=== PATIENT | female | born 1955 | race Caucasian/White ===

== ENCOUNTER → 2019-11-12 | Outpatient (CLI) | payer OTHER | LOC: RAD 10:12 | PROVIDERS: ATTEND Family Medicine | DX: Z12.31 Encounter for screening mammogram for malignant neoplasm of breast (principal) ==

== ENCOUNTER → 2020-09-07 | Outpatient (CLI) | payer OTHER | LOC: NUC 12:07 | PROVIDERS: ATTEND Family Medicine | DX: M85.88 Other specified disorders of bone density and structure, other site (principal); Z78.0 Asymptomatic menopausal state ==

== ENCOUNTER 2021-03-30 12:05 | Emergency (ER) | payer OTHER ==
[~2021-03-30] VITALS: Ht 165.1 cm; Wt 56.7 kg
[2021-03-30] MEDS ORDERED: DONEPEZIL HCL 55 M1 PO (12:14)
[2021-03-30] MEDS ORDERED: SEROQUEL 100 M100 M1 PO (12:14)
[2021-03-30] MEDS ORDERED: VITAMIN D210 MCG PO (12:15)
[2021-03-30] MEDS ORDERED: REMERON 30 MG T30 M1 PO (12:41)
[2021-03-30] MEDS ORDERED: ALENDRONATE SOD70 MG PO (12:42)
[2021-03-30] MEDS ORDERED: VITAMIN D21250 MCG PO (12:42)
[2021-03-30] MEDS ORDERED: MEMANTINE HCL10 MG PO (12:42)
[2021-03-30] MEDS ORDERED: QUETIAPINE FUMA50 MG PO (12:42)
[2021-03-30 12:44] LABS: URINE BILIRUBIN NEGATIVE (Negative); URINE BLOOD NEGATIVE (Negative); URINE CLARITY CLEAR; URINE COLOR YELLOW; URINE GLUCOSE-RANDOM* NEGATIVE (Negative); URINE KETONES NEGATIVE (Negative); URINE NITRITE-REFLEX NEGATIVE (Negative); URINE PROTEIN (DIPSTICK) NEGATIVE (Negative); URINE SPECIFIC GRAVITY <= 1.005 (1.005-1.035); URINE UROBILINOGEN 0.2 E.U./dl (0.2-1.0)
[2021-03-30 12:48] LABS: HEMATOCRIT 38.1 % (37.0-47.0); HEMOGLOBIN 12.8 gm/dL (12.0-15.0); MCH 32.3 pg (26.0-34.0); MCHC 33.7 g/dL (28.0-37.0); MCV 95.8 fL (80.0-100.0); RBC 3.97 mil/uL (4.20-5.00); RDW 13.1 % (10.5-14.5); WBC 6.4 thou/uL (4.0-11.0)
[2021-03-30 12:56] LABS: AMP/METHAMP Negative (Negative); BARBITURATES Negative (Negative); BENZODIAZEPINES Negative (Negative); COCAINE Negative (Negative); METHADONE Negative (Negative); OPIATES Negative (Negative); PCP Negative (Negative)
[2021-03-30 12:59] LABS: ANION GAP 11 mmol/L (7-16); BUN 9 mg/dL (7-18); CHLORIDE 106 mmol/L (98-107); CO2 26 mmol/L (21-32); CREATININE 0.7 mg/dL (0.6-1.0); GLUCOSE 94 mg/dL (74-106); POTASSIUM 3.6 mmol/L (3.5-5.1); SODIUM 143 mmol/L (136-145)
[2021-03-30] MEDS ORDERED: ARICEPT10 M1 PO (13:02)
[2021-03-30 13:06] LABS: URINE LEUKOCYTES-REFLEX 1+ (Negative)
[2021-03-30 13:06] LABS: LIPASE 124 U/L (73-393); SALICYLATE < 2.8 mg/dL (2.8-20.0); SGOT 16 U/L (15-37); SGPT 23 U/L (14-59); TOTAL BILIRUBIN 0.2 mg/dL (0.2-1.0); TOTAL PROTEIN 7.2 g/dL (6.4-8.2)
[2021-03-30 13:49] LABS: BACTERIA-REFLEX 1-9 Few /HPF (None Seen); CASTS None Seen /LPF (None Seen); CRYSTALS None Seen /LPF (None Seen); SQUAMOUS None Seen /LPF (0-3); URINE RBC 1-2 Rare /HPF (NONE SEEN); URINE WBC-REFLEX 0-5 Rare /HPF (0-5)
[2021-03-30 15:05] VITALS: BP 143/78
--- NOTE | 2021-03-30 15:59 | EKG ---
[place] [address] [facility] [place] [address] ELECTROCARDIOGRAM REPORT Name: MANISH GORDON Room #: [facility]#: [id number] Admission: 03/30/21 Attend Phys: Discharge: Date of : 55 Report #: [id number] [facility] ED Test Date: 2021-03-30 Test Time: 14:59:15 Pat Name: MANISH GORDON Department: Room: Gender: F Video Manager: : 1955 Requested By: Gino Grace Order Number: [id number] MD: Braxton Dahl Measurements Intervals Malone Rate: 69 P: 35 CA: 126 QRS: 2 QRSD: 98 T: 35 QT: 598 QTc: 641 Interpretive Statements Sinus rhythm Borderline low voltage, extremity leads No previous ECG available for comparison Electronically Signed On 03-30-2021 15:59:44 TRANSFORMER BUILDER by Braxton Dahl [email or web address] <ELECTRONICALLY SIGNED> By: Braxton Dahl MD, [facility] 03/30/21 1559 1459 1459 Braxton Dahl MD, FACC /EPI
== END 2021-03-30 17:26 ==
LOC: ER 12:05
PROVIDERS: Emergency Medicine; Student in an Organized Health Care Education/Training Program
DX: R45.1 Restlessness and agitation (principal); Z20.822 Contact with and (suspected) exposure to COVID-19; F03.90 Unspecified dementia, unspecified severity, without behavioral disturbance, psychotic disturbance, mood disturbance, and anxiety; F10.10 Alcohol abuse, uncomplicated; F41.9 Anxiety disorder, unspecified; F32.9 Major depressive disorder, single episode, unspecified; Z79.899 Other long term (current) drug therapy; Y90.0 Blood alcohol level of less than 20 mg/100 ml

== ENCOUNTER 2021-03-30 16:58 | Inpatient (IN) | payer OTHER ==
[~2021-03-30] VITALS: Ht 167.6 cm; Wt 57.2 kg
[~2021-03-30 16:58] MED LIST: ALENDRONATE SOD70 MG PO; ARICEPT10 M1 PO; DONEPEZIL HCL 55 M1 PO; MEMANTINE HCL10 MG PO; QUETIAPINE FUMA50 MG PO; REMERON 30 MG T30 M1 PO; SEROQUEL 100 M100 M1 PO; VITAMIN D210 MCG PO; VITAMIN D21250 MCG PO
[2021-03-30 17:35] VITALS: BP 137/71
[2021-03-30 19:21] VITALS: BP 153/75
[2021-03-31 06:14] LABS: CHOLESTEROL 183 mg/dL (<200); HDL CHOLESTEROL 96 mg/dL (>40); LDL CHOLESTEROL 75 mg/dL (<100); TC:HDL 1.9 Ratio (Not establshd); TRIGLYCERIDE 60 mg/dL (<150); VLDL 12 mg/dL (<40)
[2021-03-31 10:31] VITALS: BP 129/74
[2021-03-31 17:07] LABS: T4 (THYROXINE) 4.7 ug/dL (4.5-12.0)
[2021-03-31 19:46] VITALS: BP 143/75
[2021-04-01 09:20] VITALS: BP 116/68
--- NOTE | 2021-04-01 09:44 | H ---
[facility] [address] [place] [address] HISTORY AND PHYSICAL Name: MANISH GORDON Room #: 523B-B ADM IN M.R.#: [id number] Admission: 03/30/21 Attend Phys: Britton Bennett DO Discharge: Date of : 55 Report #: [id number] THIS REPORT FOR: cc: Bethany Joshua MD, Nora P. MD Kerstein,Britton Olivia DO ~ DATE OF SERVICE: 03/31/2021 INPATIENT PSYCHIATRIC EVALUATION ATTENDING PSYCHIATRIST: Britton Bennett DO BINDER TECHNICIAN: Jabier Tidwell DO REASON FOR ADMISSION: Elopement from her home, suicidal ideations. SOURCES OF INFORMATION: Interview with the patient; telephone conversation with her daughter, Palmira, who is the urologist in [facility]; chart review notes. CHIEF COMPLAINT: Nonspecific. HISTORY OF PRESENT ILLNESS: This is a 65-year-old female, , who resides in [place], [place], with her adult daughter. The patient has a history of Alzheimer's dementia. This may date back as far as 10 years prior. 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 The patient is pleasant on approach today. Denies specific complaints. She was brought to the Emergency Room by her youngest daughter, who I have not met yesterday and the description of the triggering events are as follows: Brought in by her daughter, daughter reports the patient wandered off this morning and was found by a neighbor. The patient has a history of Alzheimer's dementia. Daughter reports increasing agitation and outbursts, irrational behavior. The patient was told by primary care physician to come in and be evaluated. Evidently, there is some report that the patient has alcohol abuse history or alcohol use disorder. Interestingly, there is an allegation that she had 18 beers a day prior to hospital presentation, this was from the youngest daughter that lives with her. The patient became angry with her family this morning and states she "just wanted to get out of the house, so she wandered off." Her daughter states the patient was walking around the neighborhood for approximately 20 minutes and she could not find her. The daughter was worried because there was snow and ice out below freezing temperatures. The patient was wearing a coat and snow boots thankfully. When the daughter found her, she was not resistant to getting in the car. Her daughter states that she has been having more frequent episodes like this lately. Both the patient and her daughter deny any history of alcohol withdrawal including delirium tremens. The patient currently endorses a [facility] [address] [place] [address] HISTORY AND PHYSICAL Name: HEIDIMANISH J Room #: 523B-B ADM IN M.R.#: [id number] Admission: 03/30/21 Attend Phys: Britton Bennett DO Discharge: Date of : 55 Report #: [id number] significant amount of guilt about putting her daughter through such stress. She currently denied SI or HI. PAST MEDICAL HISTORY: Includes alcohol abuse. The exact extent of alcohol use has not been well established. Alzheimer's disease. PSYCHIATRIC HISTORY: Includes Alzheimer's dementia, depression and anxiety. HOME MEDICATIONS: Include mirtazapine 30 mg at bedtime, ergocalciferol 1250 mcg daily, Seroquel 50 mg oral twice a day, memantine 10 mg oral b.i.d., donepezil 10 mg oral daily. She also is taking alendronate and donepezil at home. She is a beer drinker supposedly daily. REVIEW OF SYSTEMS: A 14-point review of systems was done in the ER and was negative except for the psychiatric ones described above. Her weight is 57.425 kilograms. BMI 20.4. LABORATORY DATA: EKG done on 03/30 showed interval rate of 69, DE interval of 106 milliseconds, QT interval of 598 milliseconds, QTc was prolonged at 641 milliseconds and sinus rhythm. Of note, the patient is on multiple QT prolonging medications including Seroquel, donepezil, and mirtazapine. Imaging done was none this admission. Urine culture was triggered and it shows 3 or more organisms isolated. Hematology: White count 6.4, H and H 12.9 and 38.1, platelet count 235. Sodium 143, potassium 3.6, chloride 106, bicarbonate 26, anion gap 11, BUN 9, creatinine 0.7, estimated GFR 84, calcium 9.0. Total bilirubin 0.2, AST 16, ALT 23, alkaline phosphatase 61, total protein 7.2, albumin 4.0. Triglycerides 60, cholesterol 193, LDL 75, HDL 96. Lipase 124. TSH 4.381, which is slightly high. Urinalysis had 1+ leukocyte esterase and few bacteria. Salicylate negative, acetaminophen less than 2. Alcohol less than 10. Drug screen was otherwise negative. COVID-19 PCR was not detected. PHYSICAL EXAMINATION: VITAL SIGNS: Temperature 36.2; pulse 59, this morning; respirations 18; BP 129/74; O2 sat 94%. MUSCULOSKELETAL: Wearing glasses. Normal gait and station. MENTAL STATUS EXAMINATION: This is a well-developed, somewhat unkempt, female, appearing around stated age. Attention limited. Concentration limited. Speech soft, normal rate. Thought process: Linear and goal directed. Thought content: Focused on the present. Denied suicidal or homicidal ideation, auditory or visual type hallucinations. Denied hopelessness, helplessness. Memory informally tested as the patient had trouble remembering questions or discussions from a few minutes prior. Insight and judgment are limited. Fund of knowledge is at least average. [facility] [address] [place] [address] HISTORY AND PHYSICAL Name: MANISH GORDON Room #: 523B-B ADM IN .R.#: [id number] Admission: 03/30/21 Attend Phys: Britton Bennett DO Discharge: Date of : 55 Report #: [id number] FORMULATION: A 65-year-old female, retired and now disabled due to her dementia, presenting with vague SI, elopement behavior and inability for family to manage her. 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 I have not done SLUMS or MoCA yet, but I would expect her to be at least moderately advanced given the circumstances. In addition, I do not have a track record established of alcohol use disorder and major depressive disorder, but I will evaluate further for that. The patient's medical comorbidities are remarkably clean, as she has an elevated TSH and Dr. Tidwell will assess T3 and T4 to see if she needs a thyroid replacement. PLAN: Admitted voluntarily to [facility] to evaluate, stabilize, obtain collateral. We will set up a family meeting with the 3 daughters this coming 04/03/2021, discussion of need for placement will be undertaken. We will make several medication changes given the prolonged QTc. Donepezil discontinued, Seroquel discontinued, mirtazapine increased to 45 mg at bedtime. Continue vitamin D 5000 international units daily, memantine will continue 10 mg b.i.d.; otherwise house p.r.n.'s. Time spent on this case greater than 60 minutes, greater than 50% of the time was spent on review of records and coordination of care. STRENGTHS: She has involved daughters, reported DPOA but have not gotten documentation. WEAKNESSES: Early, quite progressive dementia. <ELECTRONICALLY SIGNED> By: Britton Bennett DO 04/01/21 0944 1404 1513 Britton Bennett DO /nt
[2021-04-01 20:03] VITALS: BP 103/59
[2021-04-02 07:34] VITALS: BP 119/70
[2021-04-02 08:30] VITALS: BP 119/70
[2021-04-02 19:13] VITALS: BP 138/90
[2021-04-02 20:10] VITALS: BP 138/90
[2021-04-03 08:10] VITALS: BP 138/81
--- NOTE | 2021-04-03 08:22 | EKG ---
[place] [address] [facility] [place] [address] ELECTROCARDIOGRAM REPORT Name: MANISH GORDON Room #: [facility] ADM IN M.R.#: [id number] Admission: 03/30/21 Attend Phys: Britton Bennett, Discharge: Date of : 55 Report #: [id number] [facility] Test Date: 2021-04-02 Test Time: 10:27:52 Pat Name: MANISH GORDON Department: Room: 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: SUNNY : 1955 Requested By: Britton Bennett Order Number: [id number] MD: Bebo Garg Measurements Intervals [place] Rate: 70 P: 41 SC: 118 QRS: 8 QRSD: 88 T: QT: 586 QTc: 633 Interpretive Statements Sinus rhythm Borderline short SC interval RSR' in V1 or V2, right VCD Nonspecific T wave abnormality Prolonged QT interval Compared to ECG 03/30/2021 14:59:15 No significant change was found Electronically Signed On 04-03-2021 8:22:34 COW TESTER by Bebo Garg [email or web address] <ELECTRONICALLY SIGNED> By: Bebo Garg MD, [facility] 04/03/21 0822 1027 1027 Bebo Garg MD, [facility] /EPI
[2021-04-03 09:48] VITALS: BP 138/81
[2021-04-03 09:49] VITALS: BP 138/81
[2021-04-03 19:30] VITALS: BP 138/81
[2021-04-03 22:36] VITALS: BP 126/84
[2021-04-04 09:59] VITALS: BP 117/69
[2021-04-04 19:20] VITALS: BP 133/68
[2021-04-04 19:35] VITALS: BP 133/68
[2021-04-05 09:15] VITALS: BP 115/62
[2021-04-05 10:29] VITALS: BP 115/62
[2021-04-05] MEDS ORDERED: MIRTAZAPINE45 MG PO (11:51)
[2021-04-05] MEDS ORDERED: LORAZEPAM 0.50.5 MG PO (11:52)
[2021-04-05] MEDS ORDERED: NAMENDA 10 MG T10 MG PO (11:52)
[2021-04-05] MEDS ORDERED: VITAMIN D3125 MC1 PO (11:53)
[2021-04-05 15:18] VITALS: BP 115/62
--- NOTE | 2021-04-06 13:37 | D ---
[facility] [address] [place] [address] DISCHARGE SUMMARY Name: MANISH GORDON Room #: 523B-B DIS IN M.R.#: [id number] Admission: 03/30/21 Attend Phys: Britton Bennett DO Discharge: 04/05/21 Date of : 55 Report #: [id number] THIS REPORT FOR: cc: Bethany Joshua MD, Nora P. MD Kerstein,Britton Olivia DO ~ DATE OF SERVICE: 04/05/2021 INPATIENT PSYCHIATRIC DISCHARGE SUMMARY ATTENDING PSYCHIATRIST: Britton Bennett D.O. LIME MIXER: Birtton Garcias M.D. DISCHARGE DIAGNOSES: Major neurocognitive disorder due to early Alzheimer's disease with behavioral disturbance, improved; prolonged QTc interval. ADDITIONAL PSYCHIATRIC COMORBIDITIES: 1. Major depressive disorder, moderate degree. 2. Insomnia. 3. Medical comorbidities actually quite few. 4. Possible deconditioning. The patient is discharging to her home where she lives with her daughter. Her daughter, Bell, and a friend will provide 24-hour supervision and assistance. The patient's aftercare is as follows, has been getting Home Health Care with [facility], psychiatric followup will be with [facility] [place]. Patient should see primary care physician within one month DISCHARGE MEDICATIONS: Mirtazapine 45 mg oral at bedtime for depression, lorazepam 0.4 mg p.r.n. for sleep and 1 mg p.o. q.6 hours p.r.n. for acute anxiety or agitation. Memantine 10 mg oral twice daily for cognitive enhancement for Alzheimer's disease, vitamin D3 5000 international units oral daily for supplementation. The patient had two EKGs I am aware of this admission. The first one on 03/30 showed a QTc of 641 and sinus rhythm. Second one on 04/02 showed a QTc of 633, in sinus rhythm. I discussed findings with one of the staff retail loss prevention officer and they believe that the EKG should be repeated in a week. The patient was not kept in the hospital long enough to achieve that time interval. It was explained to the patient and daughter that the prolonged QTc was not a reason on itself to delay discharge. DISCHARGE DIET: Regular. ACTIVITY LEVEL: As tolerated. No alcohol, no illicit drugs. LABORATORY DATA: This admission, hematology: White count 6.4, H and H 12.8 and [facility] [address] [place] [address] DISCHARGE SUMMARY Name: MANISH GORDON Room #: 523B-B [facility] IN M.R.#: [id number] Admission: 03/30/21 Attend Phys: Britton Bennett, Discharge: 04/05/21 Date of : 55 Report #: [id number] 38.1, platelet count 235. Chemistries this admission, sodium 143, potassium 3.6, chloride 106, bicarbonate 26, anion gap 11, BUN 9, creatinine 0.7, estimated GFR 84. A1c 5.0, calcium 9.0, AST 16, ALT 23, alkaline phosphatase 61, total protein 7.2, albumin 4.6, triglycerides 60, cholesterol 193, LDL 75, HDL 96, repeat was 124. TSH 4.381, free T4 4.7, total T3 97. Urinalysis grossly negative. Toxicology on this admission, negative salicylates, negative acetaminophen. No alcohol, negative for substances tested. COVID-19 PCR negative on 03/30, 04/02, and 04/04. 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 Apparently, she had a period where she had wandered off briefly with benign increased agitation. She supposedly has done 18 beers a day prior to admission, this is unusual binge. She was brought in for psychiatric evaluation. HOSPITAL COURSE: The patient was admitted to Geriatric Psychiatry Unit. Her diagnosis of an unfortunate early Alzheimer's disease has been well established. We focused on treating her depression a little bit, evaluate on her level of care. The patient has daughters in [facility] and [facility] as well. At a family conference, we discussed placement versus 24-hour care at home. Daughters are going to make an attempt to 24-hour care at home. The patient has multiple animals and the need for prevention of elopement and responsible adult supervision at all times is emphasized. Also particularly for her daughter, Bell, living in the home for patient will be a temporary measure, several months perhaps as I feel ultimately memory care placement will be needed due to care burden. PHYSICAL EXAMINATION: VITAL SIGNS: On day of discharge are as follows: Temperature 36.1, pulse 78, respirations 17, BP 115/62, O2 sat 99%. MUSCULOSKELETAL: Normal gait and station. MENTAL STATUS EXAMINATION: This is a well-developed, age-appearing female. Attention fair. Concentration fair to limited. Speech normal rate and tone. Thought Process: Linear and goal directed. Thought content focused on seeing her animals, likely be discharged. Denied suicidal or homicidal ideation, auditory or visual type hallucinations, hopelessness, helplessness. Mood and affect, constricted, congruent . Memory not formally tested, known to be impaired. Insight and judgment limited. Fund of knowledge, above average. [facility] [address] [place] [address] DISCHARGE SUMMARY Name: MANISH GORDON Room #: 523B-B DIS IN M.R.#: [id number] Admission: 03/30/21 Attend Phys: Britton Bennett DO Discharge: 04/05/21 Date of : 55 Report #: [id number] PROGNOSIS: For this patient is guarded given early Alzheimer's disease. <ELECTRONICALLY SIGNED> By: Britton Bennett DO 04/06/21 1337 09 58 Britton Bennett DO /nt
== END 2021-04-05 16:00 | disposition home or self-care (01) | DRG 57 ==
LOC: SBH 16:58
PROVIDERS: Hospitalist; ADMIT Psychiatry & Neurology Psychiatry; ATTEND Psychiatry & Neurology Psychiatry
DX: G30.9 Alzheimer's disease, unspecified (principal); F01.51 Vascular dementia, unspecified severity, with behavioral disturbance; F02.81 Dementia in other diseases classified elsewhere, unspecified severity, with behavioral disturbance; F41.9 Anxiety disorder, unspecified; F32.9 Major depressive disorder, single episode, unspecified; Z20.822 Contact with and (suspected) exposure to COVID-19; Z81.8 Family history of other mental and behavioral disorders
CPT/HCPCS: 10880